=== PATIENT | female | born 1980 | race Caucasian/White ===

== ENCOUNTER → 2019-02-25 | Outpatient (CLI) | payer OTHER ==
[~2019-02-25] VITALS: Ht 154.9 cm; Wt 106.6 kg
[~2019-02-25] MED LIST: CELEXA 20MG20 MG/TAB PO; INDERAL40 MG PO; MIRVASO30 GM TP; TRAVEL SICKNESS25 MG CHEW
[2019-02-25 14:47] VITALS: BP 142/74; PULSE 64
== END ==
LOC: LIGHT 13:05
DX: Z01.818 Encounter for other preprocedural examination (principal); E66.01 Morbid (severe) obesity due to excess calories; Z68.41 Body mass index [BMI] 40.0-44.9, adult; Z71.3 Dietary counseling and surveillance

== ENCOUNTER → 2019-02-25 | Outpatient (CLI) | payer OTHER | LOC: LIGHT 13:02 | DX: Z01.818 Encounter for other preprocedural examination (principal); E66.01 Morbid (severe) obesity due to excess calories; Z68.41 Body mass index [BMI] 40.0-44.9, adult; Z71.3 Dietary counseling and surveillance ==

== ENCOUNTER → 2019-03-12 | Outpatient (CLI) | payer OTHER ==
--- NOTE | 2019-03-12 14:35 | NUR ---
REVIEWED PRE-OP DIET OF [phone] CALORIES PER DAY 2 WEEKS PRIOR TO SURGERY. HANDOUTS ON VITAMINS/PROTEIN SUPPLEMENTS/FLUIDS AND INITIAL POST-OP DIET. DIETITIAN WILL MEET WITH HER AT 1 WEEK POST-OP VISIT. 04/01/19.
== END ==
LOC: LIGHT 07:09
DX: Z01.818 Encounter for other preprocedural examination (principal); E66.01 Morbid (severe) obesity due to excess calories; Z68.41 Body mass index [BMI] 40.0-44.9, adult; Z71.3 Dietary counseling and surveillance

== ENCOUNTER → 2019-04-01 | Outpatient (CLI) | payer OTHER ==
[~2019-04-01] VITALS: Ht 152.4 cm; Wt 95.9 kg
[~2019-04-01] MED LIST changes: +NORCO 325 MG-51 TAB PO; +TRANSDERM-0.5 MG/21 TD; +ZOFRAN 4MG T4 MG/TAB PO
[2019-04-01 14:47] VITALS: BP 116/80; PULSE 100
== END ==
LOC: LIGHT
DX: Z98.84 Bariatric surgery status (principal); E66.01 Morbid (severe) obesity due to excess calories; Z68.41 Body mass index [BMI] 40.0-44.9, adult; Z71.3 Dietary counseling and surveillance